=== PATIENT | male | born 2000 | race Caucasian/White ===

== ENCOUNTER → 2018-05-04 | Outpatient (REF) | payer BC | LOC: M LAB REF 19:18 | DX: J02.9 Acute pharyngitis, unspecified (principal) | CPT/HCPCS: 87081 ==

== ENCOUNTER → 2018-05-04 | Outpatient (CLI) | payer BC ==
[2018-05-04 19:53] LABS: ALBUMIN 4.2 GM/DL (3.2-5.2); ALBUMIN/GLOBULIN RATIO 1.02 (1.00-1.93); ALKALINE PHOSPHATASE 133 U/L (45-117); ALT/SGPT 144 U/L (12-78); ANION GAP 11 MEQ/L (8-16); AST/SGOT 96 U/L (7-37); BILIRUBIN,TOTAL 0.6 MG/DL (0.2-1.0); BLOOD UREA NITROGEN 14 MG/DL (7-18); CALCIUM LEVEL 8.9 MG/DL (8.5-10.1); CARBON DIOXIDE LEVEL 26 MEQ/L (21-32); CHLORIDE LEVEL 101 MEQ/L (98-107); CREATININE FOR GFR 1.01 MG/DL (0.70-1.30); GLUCOSE, FASTING 80 MG/DL (70-100); POTASSIUM SERUM 4.1 MEQ/L (3.5-5.1); SODIUM LEVEL 138 MEQ/L (136-145); TOTAL PROTEIN 8.3 GM/DL (6.4-8.2)
[2018-05-04 20:21] LABS: HEMATOCRIT 42.2 % (42.0-52.0); HEMOGLOBIN 14.8 g/dl (13.5-17.5); MEAN CORPUSCULAR HEMOGLOBIN 30.5 pg (27.0-33.0); MEAN CORPUSCULAR HGB CONC 35.1 g/dl (32.0-36.5); MEAN CORPUSCULAR VOLUME 86.8 fl (80.0-96.0); PLATELET COUNT, AUTOMATED 132 10^3/uL (150-450); RED BLOOD COUNT 4.86 10^6/uL (4.30-6.10); RED CELL DISTRIBUTION WIDTH 12.4 % (11.5-14.5); WHITE BLOOD COUNT 16.2 10^3/uL (4.0-10.0)
[2018-05-04 20:24] LABS: ADD MANUAL DIFFER YES; DIFF SLIDE NUMBER 348; POSITIVE DIFF POS FLAG; POSITIVE MORPH POS FLAG
[2018-05-04 22:40] LABS: ATYPICAL LYMPH 37 % (0-5); LYMPHOCYTES 43 % (16-52); MONOCYTES 1 % (0-8); NEUTROPHILS 19 % (35-75)
[2018-05-04 22:41] LABS: PLATELET ESTIMATE DECREASED (NORMAL)
[2018-05-06 15:55] LABS: EBV AB TO NUCLEAR ANTIGEN <18.0 U/mL (0.0-17.9); EBV VIRAL CAPSID AG IgG 44.9 U/mL (0.0-17.9)
[2018-05-06 15:55] LABS: EBV VIRAL CAPSID AG IgM >160.0 U/mL (0.0-35.9)
== END ==
LOC: M WUC 16:03
DX: J02.9 Acute pharyngitis, unspecified (principal)
CPT/HCPCS: 80053